=== PATIENT | female | born 1960 | race Caucasian/White ===

== ENCOUNTER → 2018-12-13 09:34 | Outpatient (CLI) | payer BC, SELFPAY ==
--- NOTE | 2018-12-13 14:47 | PM.TREADMILL ---
Cardiac Stress Test Report Referral & Results Date Patient Seen: 12/13/18 Requesting provider: Anastasia Elizabeth Indication: Chest pain Rest ECG: Inferior and lateral ST segment drooping Procedure Note: This initially was started as an exercise Cardiolite (after both written and verbal informed consent), however patient was unable to walk uphill at any speed at least not long enough to cause her heart rate to increase anywhere near targets therefore the exercise portion was modified to become a Lexiscan with Cardiolite of course. The treadmill was reduced to 1 mile an hour with no elevation and was then injected with the Ina scan material. The Cardiolite was then immediately administered. The patient spent an additional 3 minutes on the treadmill before being returned to the [facility] in the supine position. The patient had a normal response to all infused materials. With slightly increased heart rate and while she was exercising patient did have some flattening and depression of the ST segments in the inferior and lateral leads, however this is most consistent, in my opinion, with exaggeration of her pre-existing abnormalities rather than ischemia Occasional PVC Impression: Normal response to infuse materials Please see perfusion imaging report for details regarding ischemia. ECG changes as above may may not be ischemic but perfusion imaging should provide additional information Please note: Actual ECG tracings can be found in the PACS system.
--- NOTE | 2018-12-13 17:44 | DI.NM.S_ITS ---
DATE OF SERVICE: 12/13/2018 PROCEDURE: Pharmacological perfusion study. INDICATIONS: Chest pain with underlying diabetes mellitus, hypertension, hyperlipidemia. RADIOPHARMACEUTICAL: 25.4 mCi technetium-99m Myoview IV was injected at stress and 14.2 mCi technetium-99m Myoview IV was injected at rest. It was a 1-day protocol. CARDIAC STRESS: Patient underwent IV Lexiscan perfusion study under the supervision of an attending staff using standard protocol. Prior to that, she attempted exercise stress test; however, because of sciatica, she cannot walk on treadmill. Baseline EKG revealed sinus rhythm and 0.5-1 mm horizontal, as well as upsloping, ST depression in inferior leads and lead V4 to V6 which got more pronounced during stress. There were occasional PVCs. No significant sustained ventricular tachycardia or supraventricular arrhythmias seen. RAW DATA: There was breast shadow seen. GATED STUDY: Resting stress LV ejection fraction 74%. Stress LV ejection fraction 82%. TID ratio is 1.11, which is within normal limits. Resting LV end- diastolic volume is 86 mL. Lung/heart ratio is 0.25, which is within normal limits. MYOCARDIAL PERFUSION SCAN: Stress supine and resting supine images revealed small-sized mildly decreased perfusion of anterior wall which got resolved during prone images suggestive of breast tissue attenuation artifact. No convincing ischemia infarction pattern. CONCLUSION: I will call this study a normal myocardial perfusion study with preserved left ventricular (LV) function. Overall, this is a low-risk myocardial perfusion study. Patient has baseline EKG changes as stated above which got more pronounced during stress. No significant sustained arrhythmias seen. Nicolle Suarez - SELWYN/cookie/ doc#: [id number]/job#: [id number] dd: 12/13/2018 17:23:00 dt: 12/13/2018 17:35:00 DICTATING MD/COPIES TO: Srikanth Brock MD COPIES MNE: MARY
== END ==
PROVIDERS: PCP Physician Assistant; Visit Provider Physician Assistant
DX: R07.89 Other chest pain (principal); E11.9 Type 2 diabetes mellitus without complications; I10 Essential (primary) hypertension
CPT/HCPCS: 78452; 93016; 93017; 93018; A9502; J2785

== ENCOUNTER → 2022-01-06 07:36 | Outpatient (CLI) | payer BC, SELFPAY ==
--- NOTE | 2022-01-06 | DI.ECHO.S_ITS ---
[facility] +---------+ : : [address] : : : [place], [place] : : : : [id number] : : : : Phone: [phone]+ Echocardiogram Report + + :Name: ADY TANG Study Date: 01/06/2022 Height: 62 in : :[facility] ReadingLocation: Weight: 160 lb : : Gender: Female BSA: 1.7 m2 : :: 1960 Age: 61 yrs BP: 140/67 mmHg: :Reason For Study: TIA : :Ordering Physician: BAKARI, : :NEIL Performed By: Matias Reyes : :Referring: NEIL VILLEGAS : + + Interpretation Summary Normal left ventricle size with ejection fraction 65-70%. Moderate aortic valve sclerosis. Injection of contrast documented no interatrial shunt. Procedure: A two-dimensional transthoracic echocardiogram with color flow and Doppler was performed. The study quality was technically adequate. There is no prior echocardiogram noted for this patient. A saline contrast injection was performed to assess for cardiac shunting. The patient was in normal sinus rhythm during the exam. Left Ventricle: The left ventricle is normal in size and wall thickness. The ejection fraction is estimated to be 65-70%. There are no focal wall motion abnormalities. Diastolic function could not be accurately assessed due to unobtainable data. Right Ventricle: The right ventricle is normal in size and function. Atria: Both atria are normal in size. The interatrial septum grossly appears intact with no obvious evidence for an atrial septal defect. Injection of contrast documented no interatrial shunt. Mitral Valve: The mitral valve is normal in structure and function. There is no mitral regurgitation noted. Aortic Valve: There is moderate aortic valve sclerosis. No aortic regurgitation is present. Tricuspid Valve: The tricuspid valve is normal in structure and function. No tricuspid regurgitation. Pulmonary artery pressures cannot be estimated because of the lack of a measurable TR jet velocity. Pulmonic Valve: The pulmonic valve is normal in structure and function. There is no pulmonic valvular regurgitation. Great Vessels: The aortic root is normal size. The dimensions of the ascending aorta are normal. The IVC is of normal diameter and collapses greater than 50% with a sniff. This suggests a low right atrial pressure of 3 mm Hg. Pericardium/ Pleura There is no pericardial effusion. There is no pleural effusion. MMode/2D Measurements & Calculations LVIDd: 3.6 cm LVOT diam: 2.0 cm LVIDs: 2.2 cm Ao root diam: 2.5 cm FS: 38.9 % asc Aorta Diam: 3.0 cm IVSd: 1.0 cm LVPWd: 0.90 cm LV garcia. diameter/BSA (cm/m^2): 2.1 LV sys. diameter/BSA (cm/m^2): 1.3 LA dimension: 3.1 cm RA long axis: 4.6 cm LA A2 area: 13.4 cm2 RA area: 9.6 cm2 LA A4 area: 10.9 cm2 RA vol: 17.1 ml LA length (vol): 5.1 cm RA : 9.8 ml/m2 LA vol: 24.4 ml LA vol index: 14.0 ml/m2 TAPSE_phl: 2.0 cm Doppler Measurements & Calculations Ao V2 max: 166.0 cm/sec LVOT Max Fam: 112.0 cm/sec Ao V2 mean: 116.0 cm/sec LV V1 max P.0 mmHg Ao max P.0 mmHg LV V1 VTI: 21.8 cm Ao mean P.0 mmHg ARAVIND(I,D): 2.7 cm2 Ao V2 VTI: 25.8 cm ARAVIND(V,D): 2.1 cm2 sev ratio: 0.84 ARAVIND indexed to BSA (cm^2/m^2): 1.5 MV E max fam: 68.6 cm/sec SV(LVOT): 68.5 ml MV A max fam: 92.1 cm/sec MV E/A: 0.74 Med Peak E' Fam: 6.0 cm/sec E/E' med: 11.4 Lat Peak E' Fam: 10.4 cm/sec E/E' lat: 6.6 E/e' average: 9.0 MV dec time: 0.22 sec AV VR_phl: 0.67 MV P1/2t-pr_phl: 64.0 msec ARAVIND(VTI)/BSA_phl: 1.5 Electronically signed by: Paul Craig on Reading Physician:01/06/2022 01:46 PM
== END ==
PROVIDERS: PCP Physician Assistant Medical; Referring Provider Physician Assistant Medical; Visit Provider Physician Assistant Medical
DX: G45.9 Transient cerebral ischemic attack, unspecified (principal); I35.8 Other nonrheumatic aortic valve disorders
CPT/HCPCS: 93306

== ENCOUNTER 2022-06-24 07:30 | Day surgery (SDC) | payer BC, SELFPAY ==
[2022-06-20 13:45] VITALS: BMI 29.9
[2022-06-24] VITALS (8 sets, daily range): BP systolic 118–139; BP diastolic 60–77; PULSE 89–98; RESP 12–19; TEMP 36.3–36.8; O2SAT 92–99; BMI 30.2
--- NOTE | 2022-06-24 | PATH_ITS ---
[facility] Accession Number: [id number] No. of containers..01 Tissue . 01 Material submitted: . gallbladder - GALLBLADDER . 01 Diagnosis: Gallbladder, Cholecystectomy: Consistent with chronic cholecystitis. - Cholesterol polyps associated. - Negative for dysplasia and neoplasia. MRV 06/27/2022 1707 Local . 01 Electronically signed: . Nancy Bethea MD, Pathologist NPI- [id number] . 01 Gross description: . The specimen is received in formalin labeled with the patient's name, , and gallbladder, and consists of an intact gallbladder measuring 5.3 x 2.5 x 1.5 cm. The serosa is miller and wrinkled, and the hepatic surface is rough and unremarkable. The cystic duct is received closed with a clamp, is inked blue, and no pericystic lymph node is identified. The lumen contains dark green mucoid bile with no calculi identified in the lumen or the container. Multiple yellow polypoid structures are identified measuring up to 0.6 cm in greatest dimension. The mucosa is miller-green and velvety with no pinpoint yellow areas of discoloration or additional lesions identified. The phillips average 0.3 cm thick. Sharebroker sections to include the cystic duct margin and full thickness sections with polyp are submitted in cassette A1. ([id number]) /MRV 06/25/2022 1904 Local . 01 Pathologist provided ICD-10: K82.8 . 01 CPT . 389851 Specimen Comment: A courtesy copy of this report has been sent to [phone] Performed at: 01 [facility] [address] [place] [address] [address], [place], [place] [id number] MD Nilson Contreras MD Phone: [phone]
--- NOTE | 2022-06-24 08:47 | PM.HP.1 ---
History of Present Illness History of Present Illness Date Patient Seen: 06/24/22 Time Patient Seen: 08:47 Chief complaint: Laparoscopic Cholecystectomy Narrative: Nicolle is here for her laparoscopic cholecystectomy. Her symptoms are about the same as they were in May. She did see her bi technical lead. She has held her Plavix for the past week. [facility] Medical History (Updated 06/20/22 @ 13:58 by Dayanna Yousif RN) Anxiety Arthritis Asthma Carotid artery stenosis COPD (chronic obstructive pulmonary disease) Diabetes Diplopia Ectopic (1983) GERD (gastroesophageal reflux disease) Hyperlipemia Hypertension IBS (irritable bowel syndrome) Leukocytosis Nephrolithiasis Neuropathy Polycythemia Pyuria Skin cancer TIA (transient ischemic attack) Surgical History (Updated 06/20/22 @ 13:58 by Dayanna Yousif RN) History of carpal tunnel surgery of left wrist History of carpal tunnel surgery of right wrist History of surgery Hx of vascular surgery (01/2022) Social History household members: spouse Smoking Status: Former smoker alcohol intake: never Meds Home Medications and Allergies Home Medications Medication Instructions Recorded Confirmed Type aspirin 81 mg tablet,delayed 81 mg PO DAILY 06/02/22 06/24/22 History release losartan 100 1 tab PO DAILY 06/02/22 06/24/22 History mg-hydrochlorothiazide 25 mg tablet bupropion HCl 150 mg tablet,12 hr 150 mg PO DAILY 06/20/22 06/24/22 History sustained-release clopidogrel 75 mg tablet 75 mg PO DAILY 06/20/22 06/24/22 History dulaglutide 1.5 mg/0.5 mL 1.5 mg SUBCUT QWEEK 06/20/22 06/24/22 History subcutaneous pen injector (Trulicity) felodipine 5 mg tablet,extended 5 mg PO DAILY 06/20/22 06/24/22 History release 24 hr insulin aspart U-100 100 unit/mL 25 unit SUBCUT BID 06/20/22 06/24/22 History (3 mL) subcutaneous pen (Novolog FlexPen U-100 Insulin aspart) insulin detemir U-100 100 unit/mL 20 unit SUBCUT TID 06/20/22 06/24/22 History (3 mL) subcutaneous pen (Levemir FlexPen) pantoprazole 40 mg tablet,delayed 40 mg PO DAILY 06/20/22 06/24/22 History release potassium chloride 10 mEq 10 meq PO DAILY 06/20/22 06/24/22 History capsule,extended release rosuvastatin 40 mg tablet 40 mg PO DAILY 06/20/22 06/24/22 History Allergies Allergy/AdvReac Type Severity Reaction Status Date / Time acetaminophen [From Tylenol] AdvReac Severe Irritable Verified 06/24/22 08:28 Exam Const General: No acute distress Resp Effort & Inspection: normal respiratory effort GI Palpation: soft Assessment & Plan Assessment and plan (1) Gallbladder sludge: Status: Acute Plan We will proceed with a laparoscopic cholecystectomy. She will be able to start her Plavix tomorrow.
[2022-06-24] MEDS: LACTATED RINGERS 1,000 ML 84 ML IV (08:51)
[2022-06-24] MEDS: CEFAZOLIN 2 GM/100 ML PREMIX 100 ML IV (09:16)
--- NOTE | 2022-06-24 09:36 | SUR.OPER ---
Supine on padded OR bed, head on pillow, safety belt at thigh, left arm padded and tucked at side. Right arm secured on padded arm board <90 degrees abduction. Legs uncrossed. Padded footboard in place. Tape over blanket to secure lower legs.
[2022-06-24] MEDS: BUPIVACAINE 0.5% (PF) 30 ML, EPINEPHrine 0.15 MG INJ (09:57)
--- NOTE | 2022-06-24 10:17 | PM.OP.1 ---
Operative Date/Time/Diagnoses Date of procedure: 06/24/22 Time of procedure: 10:18 Pre-op diagnosis: Gallstones Post-op diagnosis: same Procedure & Clinicians Procedure: Laparoscopic cholecystectomy Same procedure as scheduled: Yes Surgeon: Darwin Duque Master In Chancery: Ky Matthew Anesthesia Type: General Operative Notes Procedure in detail: The patient was given preoperative antibiotic. The patient was brought to the operating room, placed on the table in the supine position. General endotracheal anesthesia was induced. The abdomen was prepped and draped. A time-out was performed. We made a 1 cm infraumbilical incision. We dissected down to the base of the umbilical stalk using cautery. We grasped the umbilical stalk with a Radames clamp to elevate the abdominal wall. We scored the fascia in the midline with cautery 1 cm. We pierced the peritoneum with a Peon clamp. The Abran port was placed and the abdomen was insufflated to 15 mmHg. A 5 mm 30 degree laparoscopic was inserted. There was no evidence of any injury from the entry. Next, we placed 5 mm ports in the subxiphoid position and right upper quadrant at the midclavicular line and anterior axillary line. Patient was then positioned in reverse Trendelenburg and the table was tilted to the left. The gallbladder was grasped at the dome and retracted cephalad. Some mesenteric adhesions to the gallbladder were taken down with cautery. We then dissected the cystic structures with a combination of hook cautery and blunt dissection. We obtained a critical view. We placed clips on the cystic duct and artery and divided the cystic duct and artery sharply between the clips. The gallbladder was then dissected off the liver and placed in a specimen retrieval bag. We irrigated the right upper quadrant and all the aspirate returned clear. We then removed the 5 mm ports under direct vision we removed the Abran port. We then injected some local into the fascia and closed the fascia with 2 interrupted 0 Vicryl sutures. The skin incisions were closed with 4-0 Monocryl and Steri-Strips were applied. Band-Aids were applied over the Steri-Strips. Ky BRAUN provided assistance with exposure, retraction and closure of incisions. EBL: 10 mL Specimen: Gallbladder Post-operative Condition: stable Disposition: PACU
[2022-06-24] MEDS: OXYCODONE IR 5 MG TABLET PO (11:03)
== END 2022-06-24 11:36 | disposition home or self-care (01) ==
PROVIDERS: PCP Physician Assistant Medical; Referring Provider Surgery; Visit Provider Surgery
PROC: 0FT44ZZ Resection of Gallbladder, Percutaneous Endoscopic Approach (ICD-10-PCS; CPT 47562; principal; 2022-06-24 09:15)
DX: K80.20 Calculus of gallbladder without cholecystitis without obstruction (principal)
CPT/HCPCS: 47562; 82962; J0171; J0690; J1100; J2250; J2405; J2704; J3010

== ENCOUNTER → 2023-05-06 08:44 | Outpatient (CLI) | payer BC, SELFPAY ==
--- NOTE | 2023-05-06 08:46 | DI.NM.S_ITS ---
PROCEDURE: NM ISAK PERF SPECT R&S PHARM Rest and pharmacological stress myocardial perfusion SPECT with gated imaging and ejection fraction RADIOPHARMACEUTICAL: 11.9 mCi Tc-99m tetrafosmin IV at rest and 25.5 mCi Tc-99m tetrafosmin IV at peak effect of pharmacological stress. A [id number] was performed. INDICATIONS: ATYPICAL CHEST PAIN TECHNIQUE: Radiopharmaceutical was injected at peak stress test, and also at rest. SPECT images were obtained. SPECT myocardial perfusion images were displayed in short axis, horizontal long axis, and vertical long axis views. Gated images were reviewed using Electrikus software. COMPARISON: None. CARDIAC STRESS: A pharmacologic stress test was performed under the supervision of an attending staff, using an infusion of regadenoson 0.4 mg IV. Hemodynamic data: There is normal blood pressure and heart rate response to pharmacologic stress. Symptoms: The patient denied anginal chest pain. EKG: No diagnostic changes of ischemia; no ectopy. FINDINGS: Raw data: There is good myocardial uptake of radiotracer. No significant motion artifacts. Regk-ri-tyinu ratio is 0.35 (normal is less than 0.38 for tetrafosmin tracer). Left ventricle function: Gated images demonstrate normal left ventricular wall thickening. No segmental wall motion abnormalities. No transient ischemic dilation; TID is 1.43 (normal less than 1.3). Left ventricle resting end diastolic volume is 53 mL. Left ventricle stress ejection fraction is >75%; normal range is above 45%. Myocardial perfusion: There is normal distribution of activity in the right and left ventricular myocardium. No fixed or reversible perfusion defects. IMPRESSION: Low risk study. No evidence of pharmacologic induced ischemia or scar. Calculated TID ratio elevated however visually, this is not the case. Small LV cavity size with hyperdynamic function. Dictated by: Ninfa Bejarano D.O. on 05/06/2023 at 17:38 Approved by: Ninfa Bejarano D.O. on 05/06/2023 at 17:42
== END ==
LOC: NUCM 08:45
PROVIDERS: PCP Physician Assistant Medical; Referring Provider Physician Assistant Medical; Visit Provider Physician Assistant Medical
DX: R07.89 Other chest pain (principal)
CPT/HCPCS: 78452; 93017; A9502; J2785